=== PATIENT | female | born 1965 | race Caucasian/White ===

== ENCOUNTER 2017-09-23 10:11 | Outpatient (CLI) | payer MEDICAID, MEDICARE ==
--- NOTE | 2017-09-23 10:40 | RAD ---
THREE VIEWS RIGHT SHOULDER: History: Pain. FINDINGS: There are degenerative changes of the AC joint space. Glenohumeral joint space is preserved. No dislo cation. No fracture. Visualized right ribs are unremarkable. IMPRESSION: 1. Degenerative changes of the right AC joint space. 2. No fracture or dislocation. POS: [facility]
== END 2017-09-23 10:12 | disposition home or self-care (01) ==
LOC: RAD-FRANK 10:11
PROVIDERS: ATTEND Internal Medicine
DX: S49.90XA Unspecified injury of shoulder and upper arm, unspecified arm, initial encounter (principal); M19.011 Primary osteoarthritis, right shoulder

== ENCOUNTER 2017-12-04 11:08 | Outpatient (CLI) | payer MEDICARE ==
--- NOTE | 2017-12-04 11:23 | RAD ---
LEFT HIP TWO VIEWS: History: Hip pain. FINDINGS: No signs of fracture, dislocation, or other bony findings. IMPRESSION: Negative left hip. POS: [facility]
--- NOTE | 2017-12-04 11:24 | RAD ---
LUMBAR SPINE SERIES THREE VIEWS: History: Back pain. Comparison: 09-05-06 FINDINGS: Vertebral bodies are normal in height. There is a minimal scoliotic change of the spine, convex to th e left, and there are arthritic changes at the L4-5 level with disc narrowing. No spondylolisthesis i s seen. There is a questionable left unilateral pars defect at this level. CT may be helpful in yenny r assessment of this. IMPRESSION: Development of disc narrowing at L4-5. There is a questionable left unilateral pars defect at this le nhan. CT may be helpful in further evaluation of this finding. POS: [facility]
== END 2017-12-04 11:09 | disposition home or self-care (01) ==
LOC: RAD-FRANK 11:08
PROVIDERS: ATTEND Internal Medicine
DX: M25.552 Pain in left hip (principal); M54.42 Lumbago with sciatica, left side; M48.061 Spinal stenosis, lumbar region without neurogenic claudication
CPT/HCPCS: 72100

== ENCOUNTER 2018-01-01 04:29 | Emergency (ER) | payer MEDICARE, OTHER ==
[2018-01-01 05:03] LABS: #Basophils 0.1 thou/uL (0.0-0.2); #Eosinphils 0.4 thou/uL (0.0-0.7); #Lymphocytes 1.9 thou/uL (1.20-3.40); #Monocytes 0.7 thou/uL (0.11-0.59); #Neutrophils 10.1 thou/uL (1.40-6.50); %Basophils 0.6 % (0.0-1.0); %Lymphocytes 14.4 % (21.0-51.0); %Monocytes 5.2 % (0.0-10.0); %Neutrophils 76.7 % (42.0-75.0); Hemoglobin 12.1 g/dL (12.0-16.0); Mean Corpuscular HGB CONC 34.5 g/dL (32.0-36.0); Mean Corpuscular Hemoglobin 31.3 pg (27.0-31.0); Mean Corpuscular Volume 90.5 fl (81.0-99.0); Mean Platelet Volume 6.1 fL (7.4-10.4); Platelet Count 349 thou/uL (130-400); Red Blood Cell (RBC) Count 3.86 mill/uL (4.20-5.40); White Blood Cell (WBC) Count 13.2 thou/uL (4.8-10.8)
[2018-01-01 05:22] LABS: ALT (SGPT) 12 U/L (8-55); AST (SGOT) 11 U/L (5-34); Albumin 3.9 g/dL (3.5-5.0); Alkaline Phosphatase 123 U/L (40-150); Anion Gap 14 mmol/L (10-20); BUN (Urea Nitrogen) 16 mg/dL (9.8-20.1); Bilirubin, Total 0.5 mg/dL (0.2-1.2); Calc. Creatinine Clearance 0 mL/min (70-130); Calcium 9.2 mg/dL (7.8-10.44); Carbon Dioxide 27 mmol/L (22-29); Chloride 103 mmol/L (98-107); Estimated GFR-MDRD 77; Globulin 2.8 g/dL (2.4-3.5); Glucose 126 mg/dL (70-105); Potassium 3.6 mmol/L (3.5-5.1); Protein, Total 6.7 g/dL (6.0-8.3); Sodium 140 mmol/L (136-145)
[2018-01-01] MEDS ORDERED: Ondansetron HCl/PF 4 MG/2 ML Vial ONE (05:25)
[2018-01-01] MEDS ORDERED: Meclizine HCl 25 MG TAB ONE (05:25)
[2018-01-01 06:22] LABS: Bilirubin Negative (Negative); Blood, Urine Negative (Negative); Clarity CLEAR (Clear); Glucose, Urine (Dipstick) Negative (Negative); Leukocyte Negative (Negative); Nitrite Negative (Negative); Protein, Urine (Dipstick) Negative (Neg-Trace); Urobilinogen 0.2 mg/dL (0.2-1.0); pH, Urine 7.5 (5.0-9.0)
[2018-01-01 06:31] LABS: Specific Gravity, Urine 1.053 (1.002-1.036)
--- NOTE | 2018-01-01 07:51 | CT ---
PRELIMINARY REPORT/[facility]/EMERGENCY AFTER HOURS PROCEDURE: EXAM: CT Head Without Intravenous Contrast CLINICAL HISTORY: 52 years old, female; Signs and symptoms; Dizziness and syncope and collapse; Patient HX: F52 present s to ed for syncope. Pt reports headache, dizziness, and ringing in her ears earlier tonight. Pt repo rts she then went to go to the bathroom, passed out, and fell. Pt reports waking up on the floor. Pt reports noticing that she was pale after waking up. Pt reports headache, vomiting x1, and jaw pain. Pt reports dental surgery on 12/27. Pt reports taking tramadol earlier for lower back pain and reports taking tramadol "every now and then". TECHNIQUE: Axial computed tomography images of the head/brain without intravenous contrast. COMPARISON: No relevant prior studies available. FINDINGS: Brain: Mild volume loss No hemorrhage. Mild white matter disease. No edema. Ventricles: Unremarkable. No ventriculomegaly. Bones/joints: Unremarkable. No acute fracture. Soft tissues: Unremarkable. Sinuses: Unremarkable as visualized. No acute sinusitis. Mastoid air cells: Unremarkable as visualized. No mastoid effusion. IMPRESSION: No intracranial hemorrhage.Please see discussion above. Thank you for allowing us to participate in the care of your patient. Dictated and Authenticated by: Dontae Weldon MD 01/01/2018 5:22 AM Central Time ([place] & [place]) FINAL REPORT NONCONTRAST HEAD CT: History Altered mental status. Syncope. COMPARISON: None. FINDINGS: This report is in agreement with the preliminary report by [facility]. No acute intracranial process. POS: [facility]
--- NOTE | 2018-01-01 07:55 | CT ---
PRELIMINARY REPORT/[facility]/EMERGENCY AFTER HOURS PROCEDURE: EXAM: CT Angiography Head With Intravenous Contrast CLINICAL HISTORY: 52 years old, female; Signs and symptoms; Dizziness and giddiness and headache and syncope and collap se; Patient HX: Er6; No previous on pacs; F52 presents to ed for syncope. Pt reports headache, dizzin ess, and ringing in her ears earlier tonight. Pt reports she then went to go to the bathroom, passed out, and fell. Pt reports waking up on the floor. Pt reports noticing that she was pale after waking up. Pt reports headache, vomiting x1, and jaw pain. Pt reports dental surgery on 12/27. Pt repor ts taking tramadol earlier for lower back pain and reports taking tramadol "every now and then". TECHNIQUE: Axial computed tomographic angiography images of the head with intravenous contrast using CT angiogra phy protocol. All CT scans at this facility use one or more dose reduction techniques, viz.: automate d exposure control; ma/kV adjustment per patient size (including targeted exams where dose is matched to indication; i.e. head); or iterative reconstruction technique. CONTRAST: 100 mL of ISOVUE 370 administered intravenously. COMPARISON: No relevant prior studies available. FINDINGS: Right internal carotid artery: No acute findings. Atherosclerosis noted. Intracranial segment is masters nt with no significant stenosis. No aneurysm. Right anterior cerebral artery: No occlusion or significant stenosis. No aneurysm. Right middle cerebral artery: No occlusion or significant stenosis. No aneurysm. Right posterior cerebral artery: No occlusion or significant stenosis. No aneurysm. Right vertebral artery: Unremarkable as visualized. Left internal carotid artery: No acute findings. Atherosclerosis noted. Intracranial segment is paten t with no significant stenosis. No aneurysm. Left anterior cerebral artery: No occlusion or significant stenosis. No aneurysm. Left middle cerebral artery: No occlusion or significant stenosis. No aneurysm. Left posterior cerebral artery: No occlusion or significant stenosis. No aneurysm. Left vertebral artery: Unremarkable as visualized. Basilar artery: No occlusion or significant stenosis. No aneurysm. IMPRESSION: No hemodynamically significant stenosis EXAM: CT Angiography Neck With Intravenous Contrast CLINICAL HISTORY: 52 years old, female; Signs and symptoms; Dizziness and giddiness and headache and syncope and collap se; Patient HX: Er6; No previous on pacs; F52 presents to ed for syncope. Pt reports headache, dizzin ess, and ringing in her ears earlier tonight. Pt reports she then went to go to the bathroom, passed out, and fell. Pt reports waking up on the floor. Pt reports noticing that she was pale after waking up. Pt reports headache, vomiting x1, and jaw pain. Pt reports dental surgery on 12/27. Pt reports taki ng tramadol earlier for lower back pain and reports taking tramadol "every now and then". TECHNIQUE: Axial computed tomographic angiography images of the neck with intravenous contrast using CT angiogra phy protocol. All CT scans at this facility use one or more dose reduction techniques, viz.: automate d exposure control; ma/kV adjustment per patient size (including targeted exams where dose is matched to indication; i.e. head); or iterative reconstruction technique. CONTRAST: 100 mL of ISOVUE 370 administered intravenously. COMPARISON: CT Brain WO Con 2018-01-01 05:15 FINDINGS: VASCULATURE: Right common carotid artery: No significant stenosis. No dissection or occlusion. Right internal carotid artery: Extracranial segment is patent with no significant stenosis. No dissec tion or occlusion. Right external carotid artery: Unremarkable. No occlusion. Right vertebral artery: No significant stenosis. No dissection or occlusion. Left common carotid artery: No significant stenosis. No dissection or occlusion. Left internal carotid artery: Extracranial segment is patent with no significant stenosis. No dissect ion or occlusion. Left external carotid artery: Unremarkable. No occlusion. Left vertebral artery: No significant stenosis. No dissection or occlusion. NECK: Bones/joints: No acute fracture. No dislocation. Soft tissues: Unremarkable as visualized. No mass. CAROTID STENOSIS REFERENCE USING NASCET CRITERIA: % ICA stenosis = (1 - narrowest ICA diameter/diameter of distal cervical ICA) x 100. Mild - <50% stenosis. Moderate - 50-69% stenosis. Severe - 70-94% stenosis. Near occlusion - 95-99% stenosis. Occluded - 100% stenosis. IMPRESSION: No hemodynamically significant stenosis Thank you for allowing us to participate in the care of your patient. Dictated and Authenticated by: Dontae Weldon MD 01/01/2018 5:48 AM Central Time ([place] & [place]) FINAL REPORT EMERGENCY AFTER HOURS CT ARTERIOGRAM NECK WITH IV CONTRAST AND 3D MIP IMAGING CT ARTERIOGRAM HEAD WITH IV CONTRAST AND 3D MIP IMAGING: Date: 01/01/18 Time: 0521 hours HISTORY: Syncope. Headache. Dizziness. FINDINGS: Findings agree with the preliminary report by [facility]. No significant atherosclerosis or stenosis appare nt. Each carotid system and vertebrobasilar system are widely patent. [place] is intact. No enhancing intracranial masses are apparent. POS: [facility]
== END 2018-01-01 06:50 | disposition home or self-care (01) ==
LOC: ERS 04:29
DX: R55 Syncope and collapse (principal); T40.4X5A Adverse effect of other synthetic narcotics, initial encounter; K50.90 Crohn's disease, unspecified, without complications; F32.9 Major depressive disorder, single episode, unspecified; F17.210 Nicotine dependence, cigarettes, uncomplicated; Z79.899 Other long term (current) drug therapy
CPT/HCPCS: 36415; 70450; 70496; 70498; 80053; 81003; 85025; 93005; 94760; 96361; 96374; J2405

== ENCOUNTER 2018-02-09 12:06 | Outpatient (CLI) | payer MEDICARE, MEDICAID | END 2018-02-09 12:07 | disposition home or self-care (01) | LOC: BICMAMMO 12:06 | PROVIDERS: ATTEND Family Medicine | DX: Z12.31 Encounter for screening mammogram for malignant neoplasm of breast (principal) | CPT/HCPCS: 77063; 77067 ==

== ENCOUNTER 2019-01-06 17:10 | Observation (INO) | payer MEDICAID, MEDICARE, OTHER ==
[2019-01-06] MEDS ORDERED: Ondansetron PF 4 MG/2 ML Vial ONE (18:29)
[2019-01-06] MEDS ORDERED: Morphine 4 MG/ML VIAL ONE (18:29)
[2019-01-06 18:36] LABS: #Basophils 0.1 thou/uL (0.0-0.2); #Eosinphils 0.4 thou/uL (0.0-0.7); #Lymphocytes 1.8 thou/uL (1.20-3.40); #Monocytes 0.6 thou/uL (0.11-0.59); #Neutrophils 11.7 thou/uL (1.40-6.50); %Basophils 0.8 % (0.0-1.0); %Eosinophils 2.8 % (0.0-10.0); %Lymphocytes 12.4 % (21.0-51.0); %Monocytes 4.3 % (0.0-10.0); %Neutrophils 79.8 % (42.0-75.0); Hemoglobin 14.2 g/dL (12.0-16.0); Mean Corpuscular HGB CONC 34.8 g/dL (32.0-36.0); Mean Corpuscular Hemoglobin 32.2 pg (27.0-31.0); Mean Corpuscular Volume 92.7 fL (78.0-98.0); Mean Platelet Volume 6.8 fL (7.4-10.4); Platelet Count 413 thou/uL (130-400); RBC Distribution Width 11.6 % (11.5-14.5); Red Blood Cell (RBC) Count 4.41 mill/uL (4.20-5.40); White Blood Cell (WBC) Count 14.7 thou/uL (4.8-10.8)
[2019-01-06 18:49] LABS: ALT (SGPT) 22 U/L (8-55); AST (SGOT) 19 U/L (5-34); Albumin 4.4 g/dL (3.5-5.0); Alkaline Phosphatase 152 U/L (40-150); Anion Gap 16 mmol/L (10-20); BUN (Urea Nitrogen) 18 mg/dL (9.8-20.1); Bilirubin, Total 0.3 mg/dL (0.2-1.2); Calc. Creatinine Clearance 0 mL/min (70-130); Carbon Dioxide 22 mmol/L (22-29); Chloride 104 mmol/L (98-107); Estimated GFR-MDRD 76; Glucose 125 mg/dL (70-105); Potassium 3.4 mmol/L (3.5-5.1); Protein, Total 7.4 g/dL (6.0-8.3); Sodium 139 mmol/L (136-145)
[2019-01-06] MEDS ORDERED: traMADol HCl 50 MG TAB PO PRN ×2 (18:52)
[2019-01-06] MEDS ORDERED: TETANUS AND DIPHTHERIA TOX/PF 0.5 ML DISP.SYRIN IM SCH (19:00)
[2019-01-06] MEDS ORDERED: Communication Order-Pharmacy FS SCH (19:00)
--- NOTE | 2019-01-06 19:01 | HP ---
PRINCIPAL DIAGNOSIS: Left trimalleolar ankle fracture. BRIEF HISTORY OF PRESENT ILLNESS: Cecilia is a pleasant 53-year-old lady, who reports that earlier this afternoon she had a slip and fall sustaining twisting injury to her left ankle. She reports immediate deformity and inability to stand. Upon arrival at [facility], she was found to have deformity of the left ankle with bruising medially and obvious deformity at the ankle. The patient last ate at 2 o'clock this afternoon. She reports a pain level of 6/10. PAST MEDICAL HISTORY: Remarkable for hypertension, Crohn disease, and MS. PAST SURGICAL HISTORY: Includes right total knee arthroplasty, hysterectomy, lumbar diskectomy, and cholecystectomy. MEDICATIONS: Include, 1. Hydrochlorothiazide. 2. A statin. ALLERGIES: TO PENICILLIN. THIS WAS A CHILD. SHE DOES NOT RECALL WHAT REACTION SHE HAD. SOCIAL HISTORY: She denies alcohol use. Denies drug use. She is a smoker. She lives in a private residence with family. FAMILY HISTORY: Noncontributory for this injury. REVIEW OF SYSTEMS: Denies recent fevers, chills, or sweats. Denies chest pain or shortness of breath. Denies numbness or tingling in the lower extremity. PHYSICAL EXAMINATION: VITAL SIGNS: Temperature 98, heart rate of 82, respiratory rate of 18, and blood pressure of 141/82. HEENT: Atraumatic and normocephalic. HEART: Shows regular rate and rhythm without murmur. Chest wall is nontender. LUNGS: Clear to auscultation bilaterally with good breath sounds. ABDOMEN: Round and nontender with normal bowel sounds. PELVIS: Stable. EXTREMITIES: Remarkable findings of extremities are that of a left lower extremity with obvious deformity at the ankle with obvious palpable lateral shift of the talus from within the mortise and crepitation at the lateral malleolus. Her foot compartments are soft. Lower leg compartments also soft and nontender. Distal neurovascular exam remarkable for intact subjective sensation. She is able to wiggle her toes, which has some mild to moderate pain at the ankle. DIAGNOSTIC DATA: Three-view x-ray, left ankle remarkable for a lateral malleolus and posterior malleolar fracture with lateral shift of the talus within the mortise. She was found to have avulsion injury at the tip of the medial malleolus as well. LABORATORY DATA: Pending. PLAN: At this time, the patient will be brought into the hospital. She will be placed n.p.o. after midnight with anticipated plans for open reduction and internal fixation tomorrow afternoon. Today, I discussed with the patient risks and benefits of surgery. Risks include, but are not limited to bleeding, infection, nerve injury, DVT, PE, ankle arthritis, malunion, nonunion, loss of limb or life. She appears to understand and does wish to proceed. Job ID: [id number]
--- NOTE | 2019-01-06 19:49 | RAD ---
LEFT ANKLE THREE VIEWS: 01/06/19 HISTORY: Leg injury status post fall. Obliquely oriented distal fibular fracture. Disruption of the deltoid ligament. There is some small b donnell avulsions noted. The tibia is displaced medially. There is an associated posterior malleolar frac ture. IMPRESSION: Trimalleolar fracture. POS: [facility]
--- NOTE | 2019-01-06 21:14 | RAD ---
THREE VIEWS RIGHT ANKLE 01/06/19 HISTORY: Left leg injury post fall. Mechanical fall. COMPARISON: 01/06/19 at 1724 hours. FINDINGS: Fracture involving the distal fibula is again seen with alignment of fracture fragments similar to th e prior study. There has been interval reduction of the previously noted dislocation of the tibiotala r joint although there is mild persistent widening between the medial malleolus and the talus. [place] ing splint material is now present. Tiny osseous densities are seen inferior to the medial malleolus likely related to tiny avulsion fracture fragments. Subcutaneous edema is again seen about the ankle. overlying splint material is now present. IMPRESSION: 1. Improvement in alignment of the dislocation of the tibiotalar joint as described above with s table alignment of fracture involving the distal fibula with tiny fracture fragments inferior to the medial malleolus. 2. Soft tissue swelling. POS: [facility]
[2019-01-06] MEDS: Sodium Chloride 0.9% 75 ML IV SCH ×5 (21:31→22:26)
[2019-01-06] MEDS: Morphine 4 MG/ML VIAL SLOW IVP PRN (22:32)
[2019-01-07] MEDS: Sodium Chloride 0.9% 75 ML IV SCH ×2 (00:54→01:25)
[2019-01-07] MEDS: Morphine 4 MG/ML VIAL SLOW IVP PRN ×3 (01:16→11:47)
[2019-01-07] MEDS: Ondansetron PF 4 MG/2 ML Vial IV PRN ×2 (01:23→08:11)
[2019-01-07] MEDS: Sodium Chloride 0.9% 1,000 ML IV SCH ×3 (01:25→21:13)
[2019-01-07 02:02] VITALS: BMI 31.8
[2019-01-07] MEDS ORDERED: Bupivacaine HCl 0.5%/Epinephrine 1:200,000/PF 30 ml Vial ONE (12:17)
[2019-01-07] MEDS ORDERED: Ropivacaine 0.5% HCl/PF (150 MG/30 ML VIAL) ONE (12:17)
[2019-01-07] MEDS ORDERED: Ropivacaine 0.2% HCl/PF (40 MG/20 ML VIAL) ONE (12:17)
[2019-01-07] MEDS ORDERED: Ondansetron PF 4 MG/2 ML Vial ONE (12:54)
[2019-01-07] MEDS ORDERED: Lidocaine 1% PF 5 ML VIAL ONE (12:54)
[2019-01-07] MEDS ORDERED: PHENYLEPHRINE-NS 100 MCG/ML 10 ML SYRINGE ONE (12:54)
[2019-01-07] MEDS ORDERED: PROPOFOL 200 MG/20 ML VIAL ONE (12:54)
[2019-01-07] MEDS ORDERED: Clindamycin/D5W 900 mg/50 ml Premix Bag ONE (13:58)
[2019-01-07] MEDS ORDERED: Ropivacaine 0.2% 550 ML 550 ML NERVE BLCK SCH (14:41)
[2019-01-07] MEDS ORDERED: Ondansetron PF 4 MG/2 ML Vial IVP PRN (14:41)
[2019-01-07] MEDS ORDERED: HYDROcodone/Acetaminophen 10/325 mg Tablet PO PRN ×2 (14:41)
[2019-01-07] MEDS ORDERED: Promethazine HCl 25 MG/ML VIAL IM PRN (14:41)
[2019-01-07] MEDS ORDERED: Zolpidem Tartrate 5 MG TAB PO PRN (14:41)
[2019-01-07] MEDS ORDERED: traMADol HCl 50 MG TAB PO PRN ×2 (14:41)
[2019-01-07] MEDS ORDERED: Fentanyl 100 MCG/2 ML VIAL IV PRN (14:42)
[2019-01-07] MEDS ORDERED: Midazolam HCl 2 mg/2 ml Vial ONE (14:47)
[2019-01-07] MEDS ORDERED: Fentanyl 100 MCG/2 ML VIAL ONE (14:47)
--- NOTE | 2019-01-07 15:46 | RAD ---
LEFT ANKLE 3 VIEWS: Date: 01/07/19 HISTORY: Distal fibular fracture. FINDINGS/IMPRESSION: Three spot fluoroscopic intraoperative images of the left ankle demonstrate interval reduction and in ternal fixation of the distal fibular fracture with plate and screws. Anatomic alignment has been res tored. POS: [facility]
[2019-01-07] MEDS: Ketorolac Tromethamine 30 MG/ML VIAL IVP SCH ×2 (17:58→23:23)
--- NOTE | 2019-01-07 19:28 | OP ---
DATE OF PROCEDURE: 01/07/2019 PREOPERATIVE DIAGNOSES: Left lateral and posterior malleoli fractures with small avulsion from left medial malleolus. POSTOPERATIVE DIAGNOSES: Left lateral and posterior malleoli fractures with small avulsion from left medial malleolus. PROCEDURE PERFORMED: Open reduction and internal fixation of left lateral malleolus. ANESTHESIA: General. CAMP PROGRAM DIRECTOR: Vel Smith PA-C. TOURNIQUET TIME: 32 minutes at 300 mmHg. IMPLANT: Synthes 8-hole 1/3 tubular plate. COMPLICATIONS: None. DRAINS: None. SPECIMEN: None. OUTCOME: Near-anatomic alignment with stable mortise. INDICATIONS: Ms. Adame is a 53-year-old lady who is status post slip and fall sustaining twisting injury to her left ankle on 01/06/2019. The patient was seen and evaluated in the emergency room where x-rays demonstrated a lateral malleolus fracture with displacement as well as lateral shift of the talus. She was found to have a lateral malleolus fracture as well as a posterior malleolar fracture with the less than 25% articular surface involved as well as a small avulsion injury from the medial side of the ankle. After discussion with the patient including risks and benefits, we decided to proceed with open reduction and internal fixation and possible stabilization of the mortise if necessary. Informed consent has been obtained. I believe all questions answered. DESCRIPTION OF PROCEDURE: The patient was brought to the operating room and a time-out performed followed by induction of general anesthesia. Next, sterile prep and drape was performed of the left lower extremity. The limb was then exsanguinated with Esmarch bandage, tourniquet inflated to 300 mmHg. A vertical incision was made following the distal fibula. After skin was sharply incised, dissection was carried down bluntly exposing the fracture and the lateral cortex of the distal fibula. The fracture was then reduced and held in place with a bone tenaculum. Next, an 8-hole 1/3 tubular plate was applied to the lateral cortex of the distal fibula, contouring it to fit the contour of the distal fibula. This was held in place with 3.5 mm cortical screw proximal to the fracture and then a total of three 4.0 mm fully-threaded cancellous screws distal to the fracture. Additional 3.5 mm screws then applied proximally as well. At the completion of this, AP, lateral, and mortise images were obtained that showed anatomic reduction of the mortise with no lateral shift of the talus. The lateral malleolus was grabbed with a bone tenaculum. An attempt at distraction of the mortise was performed, however, no widening was achieved. The posterior malleolus also essentially reduced with anatomic reduction of the lateral malleolus. As such, it was opted not to proceed with it further placement of hardware. The lateral wound was thoroughly irrigated with bulb syringe and then closed in layers with 0 Vicryl deep, 2-0 Vicryl subcutaneously, and sergio for the skin. Xeroform gauze, Webril, and fiberglass splint was applied to the ankle. The tourniquet was let down at the completion of dressing and patient was transferred to recovery room in stable condition. There were no complications. The patient tolerated the procedure well. Job ID: [id number]
[2019-01-07] MEDS: Aspirin 81 mg Enteric Coated Tablet PO SCH (21:13)
[2019-01-08] MEDS: Ketorolac Tromethamine 30 MG/ML VIAL IVP SCH (06:11)
[2019-01-08] MEDS: Sodium Chloride 0.9% 1,000 ML IV SCH (07:32)
[2019-01-08 08:03] VITALS: BP 112/69; TEMP 98.5
[2019-01-08] MEDS: Aspirin 81 mg Enteric Coated Tablet PO SCH (08:04)
--- NOTE | 2019-01-11 08:38 | DIS ---
DATE OF ADMISSION: 01/06/2019 DATE OF DISCHARGE: 01/08/2019 PREOPERATIVE DIAGNOSIS: Left lateral and posterior malleolar fractures with small avulsion of the left medial malleolus. POSTOPERATIVE DIAGNOSIS: Left lateral and posterior malleolar fractures with small avulsion of the left medial malleolus. PROCEDURE PERFORMED: The patient underwent open reduction and internal fixation of the left lateral malleolus. HOSPITAL COURSE: Hospital stay unremarkable. The patient worked with physical therapy to increase her mobility and she did okay and had no hospital complications. DISCHARGE CONDITION: Stable. DISPOSITION: Home. FOLLOWUP: Would be in 10 to 14 days or sooner if there are problems and/or concerns. DISCHARGE MEDICATIONS: Given with usage instructions. Job ID: [id number]
== END 2019-01-08 10:14 | disposition home or self-care (01) ==
LOC: ERS 17:10 → SURG B 19:58
PROVIDERS: ADMIT Orthopaedic Surgery; ATTEND Orthopaedic Surgery
PROC: 0QSK04Z Reposition Left Fibula with Internal Fixation Device, Open Approach (ICD-10-PCS; principal; 2019-01-07)
DX: S82.852A Displaced trimalleolar fracture of left lower leg, initial encounter for closed fracture (principal); I10 Essential (primary) hypertension; G35 Multiple sclerosis; K50.90 Crohn's disease, unspecified, without complications; F17.210 Nicotine dependence, cigarettes, uncomplicated; Z79.899 Other long term (current) drug therapy; Z96.651 Presence of right artificial knee joint; Z98.890 Other specified postprocedural states; Z88.0 Allergy status to penicillin; X50.1XXA Overexertion from prolonged static or awkward postures, initial encounter; W01.0XXA Fall on same level from slipping, tripping and stumbling without subsequent striking against object, initial encounter
CPT/HCPCS: 27792; 27840; 73610 ×2; 76000; 80053; 85025; 86850; 86870; 86900; 86901; 86902; 86905; 86920; 86922; 96361 ×2; 96372; 96374; 96375 ×2; 96376 ×3; 97116; 97139 ×3; 99284; A4306; C1713 ×3; G0378 ×2; J0670; J1885; J2001; J2250; J2270; J2405; J2550; J2704; J2795; J3010; J3490

== ENCOUNTER 2020-01-22 14:21 | Inpatient (IN) | payer MEDICARE, OTHER ==
[~2020-01-22 14:21] MED LIST: Iopamidol 370 76% 100 ML VIAL ONE
--- NOTE | 2020-01-22 14:34 | CT ---
CT HEAD WITHOUT IV CONTRAST COMPARISON: 01/01/2018 HISTORY: Level 1 stroke alert. Left lower facial droop. Right-sided neck pain. TECHNIQUE: Axial CT imaging at 5 mm intervals from vertex through skull base without contrast FINDINGS: There is stable low density area seen within the right anterior frontal forceps region in the subcort ical white matter which is nonspecific but likely reflective of mild chronic small vessel ischemic changes given stability over this period of time. There is no evidence of an acute infarction, hemorr junito, mass effect, or midline shift. The ventricular system is normal in size, shape, and position. Visualized paranasal sinuses are clear. Osseous structures appear intact. IMPRESSION: 1. No acute intracranial abnormality demonstrated. 2. Above findings discussed with Dr. Rodriguez in the emergency department on 01/22/2020 at 1430 hours.
[2020-01-22 14:50] LABS: #Basophils 0.1 thou/uL (0.0-0.2); #Eosinphils 0.5 thou/uL (0.0-0.7); #Lymphocytes 2.4 thou/uL (1.20-3.40); #Monocytes 0.6 thou/uL (0.11-0.59); #Neutrophils 6.7 thou/uL (1.40-6.50); %Basophils 0.8 % (0.0-1.0); %Eosinophils 5.1 % (0.0-10.0); %Lymphocytes 23.1 % (21.0-51.0); %Monocytes 5.7 % (0.0-10.0); %Neutrophils 65.3 % (42.0-75.0); Hemoglobin 13.9 g/dL (12.0-16.0); Mean Corpuscular HGB CONC 34.1 g/dL (32.0-36.0); Mean Corpuscular Hemoglobin 31.4 pg (27.0-31.0); Mean Corpuscular Volume 92.1 fL (78.0-98.0); Mean Platelet Volume 7.4 fL (7.4-10.4); Platelet Count 329 thou/uL (130-400); Red Blood Cell (RBC) Count 4.41 mill/uL (4.20-5.40); White Blood Cell (WBC) Count 10.3 thou/uL (4.8-10.8)
[2020-01-22 15:03] LABS: PTT 28.3 SEC (22.9-36.1)
--- NOTE | 2020-01-22 15:05 | CT ---
EXAM: CT angiogram head and neck with IV contrast and 3-D reconstructions PROVIDED CLINICAL HISTORY: Left lower facial droop and right-sided neck pain for 3 days COMPARISON: 01/01/2018 FINDINGS: There is a normal arrangement of the great vessels at the aortic arch which are patent. Portion of th e left subclavian artery is not well visualized due to dense contrast in adjacent veins, but the subclavian arteries are otherwise patent bilaterally. The innominate artery as well as bilateral comm on carotid arteries are patent. The bilateral internal and extracranial external carotid arteries are patent. The right vertebral artery is again dominant and patent. The left vertebral artery is small in calibe r and terminates in PICA. The basilar artery and bilateral posterior cerebral arteries are patent The bilateral middle cerebral and anterior cerebral arteries are patent. No focal stenosis or branch occlusion is appreciated. Vascular calcifications are seen in the carotid siphons. Volume loss is seen in the anterior aspect of the right upper lobe with mild dependent atelectasis bi laterally. There is been no interval change when compared to the prior exam. IMPRESSION: 1. Patent bilateral internal carotid arteries. 2. Patent right vertebral artery. The left vertebral artery is small in caliber and terminates in PIC A but is patent. 3. No focal stenosis or branch occlusion is seen involving the [place] or vertebrobasilar sy stem. 4. No definite intracranial aneurysm is seen within the limitations of the technique of this exam.
[2020-01-22 15:14] LABS: ALT (SGPT) 42 U/L (8-55); AST (SGOT) 28 U/L (5-34); Albumin 4.4 g/dL (3.5-5.0); Alkaline Phosphatase 118 U/L (40-110); Anion Gap 18 mmol/L (10-20); BUN (Urea Nitrogen) 14 mg/dL (9.8-20.1); Bilirubin, Total 0.8 mg/dL (0.2-1.2); CK (CPK) 90 U/L (29-168); Calc. Creatinine Clearance 0 mL/min (70-130); Calcium 10.4 mg/dL (7.8-10.44); Carbon Dioxide 22 mmol/L (22-29); Chloride 102 mmol/L (98-107); Estimated GFR-MDRD 74; Globulin 2.5 g/dL (2.4-3.5); Glucose 102 mg/dL (70-105); Potassium 3.9 mmol/L (3.5-5.1); Protein, Total 6.9 g/dL (6.0-8.3); Sodium 138 mmol/L (136-145)
[2020-01-22] MEDS ORDERED: Aspirin 325 MG TAB ONE (16:05)
[2020-01-22 16:25] LABS: Hemoglobin A1c 5.6 % (4.0-6.0)
--- NOTE | 2020-01-22 16:32 | PDOC.HHP ---
Hospitalist HPI - History of Present Illness Right face numbness History of Present Illness: 54 years old female with past medical history of hypertension, MS, and Crhons disease who was transferred to the hospital for a suspected CVA. The patient presented with Right sided ptosis, facial droop, and numbness. CT head and CTA of the head and neck did not reveal any abnormalities. The patient refused TPA. She will be admitted for further evaluation. 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) Renal/: reports: Other (Crohn) - Past Surgical History Past Surgical History: reports: Cholecystectomy, Hysterectomy - Family History Family History: reports: no pertinent history - Social History Smoking Status: Never smoker Alcohol: reports: None Drugs: reports: none - Exam General Appearance: awake alert Eye: PERRL ENT: normocephalic atraumatic Neck: supple, no JVD Heart: RRR, no murmur, no gallops, no rubs Respiratory: CTAB, no wheezes, no rales, no ronchi Gastrointestinal: soft, non-tender, non-distended, normal bowel sounds Neurological: no weakness Neurological - other findings: Rt facial droop and ptosis Hospitalist Results - Labs Result Diagrams: 01/22/20 14:32 01/22/20 14:32 Lab results: WBC 10.3 thou/uL (4.8-10.8) 01/22/20 14:32 Hgb 13.9 g/dL (12.0-16.0) 01/22/20 14:32 Hct 40.6 % (36.0-47.0) 01/22/20 14:32 MCV 92.1 fL (78.0-98.0) 01/22/20 14:32 Plt Count 329 thou/uL (130-400) 01/22/20 14:32 Neutrophils % 65.3 % (42.0-75.0) 01/22/20 14:32 Sodium 138 mmol/L (136-145) 01/22/20 14:32 Potassium 3.9 mmol/L (3.5-5.1) 01/22/20 14:32 Chloride 102 mmol/L (98-107) 01/22/20 14:32 Carbon Dioxide 22 mmol/L (22-29) 01/22/20 14:32 BUN 14 mg/dL (9.8-20.1) 01/22/20 14:32 Creatinine 0.80 mg/dL (0.6-1.1) 01/22/20 14:32 Glucose 102 mg/dL (70-105) 01/22/20 14:32 Calcium 10.4 mg/dL (7.8-10.44) 01/22/20 14:32 Total Bilirubin 0.8 mg/dL (0.2-1.2) 01/22/20 14:32 AST 28 U/L (5-34) 01/22/20 14:32 ALT 42 U/L (8-55) 01/22/20 14:32 Alkaline Phosphatase 118 U/L (40-110) H 01/22/20 14:32 Creatine Kinase 90 U/L (29-168) 01/22/20 14:32 Troponin I Less than 0.010 ng/mL (< 0.028) 01/22/20 14:32 Serum Total Protein 6.9 g/dL (6.0-8.3) 01/22/20 14:32 Albumin 4.4 g/dL (3.5-5.0) 01/22/20 14:32 Hospitalist H&P A/P - Problem (1) Facial droop Code(s): R29.810 - FACIAL WEAKNESS Status: Acute (2) HTN (hypertension) Code(s): I10 - ESSENTIAL (PRIMARY) HYPERTENSION Status: Acute (3) Crohn disease Code(s): K50.90 - CROHN'S DISEASE, UNSPECIFIED, WITHOUT COMPLICATIONS Status: Acute - Plan Plan: [place] palsy vs CVA VS MS flare. Placed in neuro telemetry. Neurochecks every 4 hours. High-dose aspirin and atorvastatin. Liberate blood pressure with a goal of systolic blood pressure less than 220 and diastolic blood pressure less than 110. Keep blood sugar level less than 180. Check lipid profile Check hemoglobin A1c Check echocardiogram Check MRI of the brain PT/OT/ST
[2020-01-22 17:05] LABS: Bilirubin Negative (Negative); Blood, Urine Negative (Negative); Clarity Clear (Clear); Glucose, Urine (Dipstick) Normal (Negative); Leukocyte Negative Leu/uL (Negative); Nitrite Negative (Negative); Protein, Urine (Dipstick) Negative (Neg-Trace); Urobilinogen Normal mg/dL (Less than 2)
[2020-01-22 18:40] VITALS: BMI 32.1
[2020-01-22] MEDS ORDERED: Acetaminophen 650 MG Suppository PR PRN (20:07)
[2020-01-22] MEDS: Morphine 2 MG/ML SYRINGE SLOW IVP PRN (21:52)
[2020-01-22] MEDS: Atorvastatin Calcium 40 MG TAB PO SCH (21:53)
[2020-01-23] MEDS: Morphine 2 MG/ML SYRINGE SLOW IVP PRN (06:12)
[2020-01-23] MEDS: Enoxaparin Sodium 40 MG/0.4 ML SYRINGE SC SCH (08:46)
[2020-01-23] MEDS: Aspirin 325 mg Enteric Coated Tablet PO SCH (08:46)
--- NOTE | 2020-01-23 09:51 | PDOC.HOSPP ---
- Subjective Encounter Date: 01/23/20 Subjective: Rt sided inability to close the eye and facial droop. - Objective Vital Signs & Weight: Vital Signs (12 hours) Temp Pulse Resp BP Pulse Ox 01/23/20 07:47 97.6 F 79 16 124/79 95 01/23/20 04:00 97.7 F 77 16 120/70 96 01/23/20 00:00 98.1 F 71 16 132/75 95 Weight Weight 181 lb Result Diagrams: 01/22/20 14:32 01/22/20 14:32 Additional Labs: Accuchecks 01/22/20 01/22/20 21:27 14:28 POC Glucose 110 102 Hospitalist ROS - Review of Systems Constitutional: denies: fever, chills ENT: reports: ear pain (Rt) - Medication Medications: Active Medications Generic Name Dose Route Start Last Admin Trade Name Freq PRN Reason Stop Dose Admin Aspirin 325 mg 01/23/20 09:00 01/23/20 08:46 Ecotrin PO 325 mg DAILY TOMMY Administration Atorvastatin Calcium 80 mg 01/22/20 21:00 01/22/20 21:53 Lipitor PO Not Given HS TOMMY Enoxaparin Sodium 40 mg 01/23/20 09:00 01/23/20 08:46 Lovenox SC 40 mg 0900 TMOMY Administration Morphine Sulfate 2 mg 01/22/20 20:07 01/23/20 06:12 Morphine SLOW IVP 2 mg Q4H PRN Administration Moderate Pain (4-6) Sodium Chloride 10 ml 01/22/20 16:02 01/22/20 21:54 Flush - Normal Saline IVF 10 ml PRN PRN Administration Saline Flush - Exam General Appearance: awake alert Eye: PERRL ENT: normocephalic atraumatic Neck: supple, no JVD Heart: RRR, no murmur, no gallops, no rubs Respiratory: CTAB Gastrointestinal: soft, non-tender, non-distended Neurological - other findings: Right sided lower motor neuron style facial palsy Hosp A/P (1) Facial droop Code(s): R29.810 - FACIAL WEAKNESS Status: Acute (2) HTN (hypertension) Code(s): I10 - ESSENTIAL (PRIMARY) HYPERTENSION Status: Acute (3) Crohn disease Code(s): K50.90 - CROHN'S DISEASE, UNSPECIFIED, WITHOUT COMPLICATIONS Status: Acute - Plan 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 Start artificial tears and prednisone 60 mg po daily for one week. MRI machine not working today. Hopefully the test can be done tomorrow and the patient can be discharged.
[2020-01-23] MEDS ORDERED: Lidocaine 2% 20 ml MDV SC SCH (10:00)
[2020-01-23] MEDS ORDERED: Lidocaine 5% Patch TD SCH (10:45)
[2020-01-23] MEDS ORDERED: Scopolamine 1.5 mg/72 hour Patch TD SCH (11:00)
[2020-01-23] MEDS ORDERED: predniSONE 20 MG TAB PO SCH (12:00)
[2020-01-23] MEDS: Artificial Tear Sol 15 ML BOT R EYE SCH ×4 (12:52→22:10)
--- NOTE | 2020-01-23 17:26 | CON ---
DATE OF TELEMEDICINE CONSULTATION: 01/23/2020 CHIEF COMPLAINT: Right facial droop. HISTORY OF PRESENT ILLNESS: The patient is a 54-year-old right-handed lady, who was in her usual state of health until about 3 days ago when she developed pain in her neck which traveled to under her ear on the right side and she suddenly developed right facial droop. Her tongue felt thick and she cannot close her eyes and she had no associated numbness, weakness, or dizziness or any other neurological symptoms suggest following difficulty. PREVIOUS MEDICAL HISTORY: She was told that she had multiple sclerosis in 2008 , at which time, she was having gait problems and also had a thorough evaluation by neurologist in [place]. She reports she had white matter lesions in front of the brain and she was told that she had enhancement of those lesions and was given treatment for demyelination at that time and subsequently she never had any other symptoms and she does have history of Crohn disease. PAST SURGICAL HISTORY: Cholecystectomy, hysterectomy, and other pertinent previous medical history includes hypertension. FAMILY HISTORY: The patient's parents had CVA. She has 2 brothers who are healthy. She does not have any children. SOCIAL HISTORY: She is nonsmoker. No alcohol. No drugs. She is on disability for Crohn disease. REVIEW OF SYSTEMS: PULMONARY: Negative for shortness of breath. CARDIAC: Negative for chest pain or palpitations. GI: Negative for any stomach issues, but positive for Crohn disease. HEMATOLOGIC: Negative for any bleeding diathesis. OPHTHALMOLOGIC: Negative for any eye problems. DERMATOLOGIC: Negative for skin lesions. LABORATORY REPORTS: White count 10.3, hemoglobin 13.9, hematocrit 40.6, platelet count 329. PT 13, INR 1.0, PTT 28.3. Chemistry; sodium 138, potassium 3.9, chloride 102, bicarb 22, anion gap 18, BUN 14, creatinine 0.8, glucose 102. AST 28, ALT 42, alkaline phosphatase 118, CPK 90, triglycerides 178, cholesterol 186, LDL 113, HDL 37, heart disease risk ratio 5.0, and she is pending MRI. She did have a CT angiogram of the [place] of [place], which showed patent bilateral ICAs, patent right vertebral artery, left vertebral artery small in caliber and terminates in pica but is patent. No focal stenosis or branch occlusion is seen in the [place]. No definite intracranial aneurysm is seen. PHYSICAL EXAMINATION: VITAL SIGNS: Temperature 97.6, pulse 79, respiratory rate 16, O2 saturations 95 , blood pressure 141/83. GENERAL APPEARANCE: Well-built, well-nourished lady. CHEST: Clear vesicular breathing. CARDIOVASCULAR: S1, S2 heard. No murmurs. ABDOMEN: Soft, nontender. No organomegaly noted. NEUROLOGIC: Higher intellectual functions; normal orientation to time, place, and person. Appropriate conversation. Cranial nerves 2 through 12 normal extraocular movements. Decreased sensation of face on the right side. Right facial droop mostly lower motor neuron type facial paralysis. Tongue midline. No atrophy noted. Normal elevation of palate. Normal hearing bilaterally. Pupils 2 mm bilaterally. Motor bulk, normal tone. Normal strength 5/5 in upper and lower extremities in iliopsoas, hamstrings, quadriceps, ankle dorsiflexion, plantar flexion, deltoid, biceps, triceps, wrist extension and flexion, finger extension and flexion bilaterally. Deep tendon reflexes 2+ throughout in upper and lower extremities. Sensory examination normal to touch bilaterally in upper and lower extremities. Cerebellar, [id number] and [id number] is normal. IMPRESSION AND PLAN: The patient is a 54-year-old lady with history of possible demyelination in the past without any Neurology followup and the patient at this time comes in with right facial droop with the sudden onset associated with pain behind her right ear. She also has mild facial numbness on the right side on examination. 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 However, given her history of demyelination, I would suggest MRI with and without contrast to make sure that there are no enhancing lesions in the [employer] prior to discharging this patient. Please consider adding steroids and acyclovir for Salas palsy. Call me if you have any further questions. Job ID: [id number] [facility]
[2020-01-23] MEDS: Atorvastatin Calcium 40 MG TAB PO SCH (20:29)
[2020-01-23] MEDS ORDERED: Lidocaine Patch Removal 1 EACH TOP SCH (21:00)
[2020-01-24] MEDS ORDERED: predniSONE 20 MG TAB PO SCH (08:00)
[2020-01-24] MEDS ORDERED: Ibuprofen 800 MG TAB PO PRN (08:09)
[2020-01-24] MEDS: Aspirin 325 mg Enteric Coated Tablet PO SCH (08:26)
[2020-01-24] MEDS: Enoxaparin Sodium 40 MG/0.4 ML SYRINGE SC SCH (08:27)
[2020-01-24] MEDS: Artificial Tear Sol 15 ML BOT R EYE SCH ×2 (08:27→15:54)
[2020-01-24] MEDS ORDERED: Lidocaine 5% Patch TD SCH (09:00)
[2020-01-24 11:25] VITALS: BP 133/70; TEMP 98.6
--- NOTE | 2020-01-24 13:40 | MRI ---
MRI BRAIN WITH AND WITHOUT IV CONTRAST: HISTORY: Left facial droop. Level 1 stroke. Concern for demyelination COMPARISON: 09/28/2012 CORRELATION: CT and CTA brain dated 01/22/2020 FINDINGS: No restricted diffusion is seen. No evidence of infarct, hemorrhage, mass, midline shift or abnormal extra-axial fluid collections is noted. No abnormal postcontrast enhancement is seen. The ventricular size is appropriate and the basilar cisterns are patent. There are multiple foci of T2 prolongation in the periventricular and subcortical white matter which remains stable; though could represent multiple sclerosis, the location and characteristics are not classic for multiple sclerosis. These findings may represent chronic small vessel ischemic disease. IMPRESSION: No evidence of acute intracranial process, mass or active demyelination..
--- NOTE | 2020-01-24 14:55 | MRI ---
MRI THORACIC SPINE WITH AND WITHOUT CONTRAST: Date: 01/24/2020 INDICATION: Demyelination. FINDINGS: The thoracic vertebra maintain normal height and alignment. There are mild degenerative changes in th e thoracic spine with mild anterior osteophytes and mild degenerative disc changes. There is no significant disc bulge or disc protrusion at any of the visualized thoracic levels. No ce ntral canal stenosis. The thoracic cord signal is normal. There is no evidence of demyelinating process. No abnormal enhanc ement identified. IMPRESSION: Unremarkable MRI of thoracic spine. POS: [facility]
--- NOTE | 2020-01-24 19:17 | DIS ---
DATE OF ADMISSION: 01/22/2020 DATE OF DISCHARGE: 01/24/2020 REASON FOR HOSPITALIZATION: Facial asymmetry. 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 PROCEDURES PERFORMED AND TREATMENTS RENDERED: The patient was admitted to the medical unit with telemetry, stroke unit for maximum medical therapy. The patient was seen and evaluated by Neurology, please see full consultation notes and progress notes for details. Neurology recommending that the patient likely suffering from Salas's palsy, and recommended starting medical therapy, which was done appropriately. The patient had all appropriate neurologic imaging to rule out acute CVA, please see full radiographic imaging reports for details. The patient had an MRI of the brain, please see full report for details, there is no acute CVA identified. The patient's otherwise workup was benign including echocardiogram with a preserved ejection fraction of 55% to 60% and mild diastolic dysfunction. There are also mild mitral regurgitation and mild tricuspid regurgitation present on echocardiogram - please see full echocardiogram report for details. The patient having CT angiography of the head and neck, please see full report for details, there is no hemodynamically significant stenosis in bilateral internal carotid arteries. The patient had a metabolic workup, please see full laboratory data for details, she had no significant abnormalities on her laboratory data. The patient with urinalysis that was negative for urinary tract infection. The patient was recommended safe for discharge by Neurology with close followup in the outpatient setting. CONDITION ON DISCHARGE: Stable. SPECIFIC INSTRUCTIONS FOR THE PATIENT/FAMILY: 1. The patient recommended to complete a full course of oral medications for resolution of Salas's palsy. 2. The patient recommend to follow up with primary care physician in the next 5 to 7 days. 3. The patient recommended to follow up with Neurology, Dr. Us in the outpatient setting in the next 1 to 2 weeks. 4. The patient recommended to follow up with all of her other physicians as directed. 5. The patient recommended to return to acute care hospital immediately if signs or symptoms return, worsen, or any other new symptoms occur. DISCHARGE MEDICATIONS: Please see full discharge medication list for details with the following changes. 1. Acyclovir 200 mg one tablet p.o. t.i.d. 2. Prednisone 60 mg daily for four days, followed by 40 for one day, followed by 20 for one day, followed by 10 for two days, and then stop. 3. Lidocaine 5% transdermal patch one patch topically daily. 4. Ibuprofen 800 mg q.8 hours p.r.n. severe pain, to be taken with food or snack. 5. Aspirin 81 mg one tablet p.o. daily. 6. Vitamin D 2 tablets p.o. daily. 7. Hydrochlorothiazide 25 mg one tablet p.o. daily. 8. Mesalamine 1000 mg one tablet p.o. 4 times per day as needed for inflammatory bowel disease. 9. Vitamin C 1000 mg p.o. daily. 10. Artificial Tears each eye four times per day as needed for dry eyes. Greater than 37 minutes spent coordinating care and discharge process for this patient. Job ID: [id number]
--- NOTE | 2020-01-25 15:34 | CT ---
EXAM: CT angiogram head and neck with IV contrast and 3-D reconstructions PROVIDED CLINICAL HISTORY: Left lower facial droop and right-sided neck pain for 3 days COMPARISON: 01/01/2018 FINDINGS: There is a normal arrangement of the great vessels at the aortic arch which are patent. Portion of th e left subclavian artery is not well visualized due to dense contrast in adjacent veins, but the subclavian arteries are otherwise patent bilaterally. The innominate artery as well as bilateral comm on carotid arteries are patent. The bilateral internal and extracranial external carotid arteries are patent. The right vertebral artery is again dominant and patent. The left vertebral artery is small in calibe r and terminates in PICA. The basilar artery and bilateral posterior cerebral arteries are patent The bilateral middle cerebral and anterior cerebral arteries are patent. No focal stenosis or branch occlusion is appreciated. Vascular calcifications are seen in the carotid siphons. Volume loss is seen in the anterior aspect of the right upper lobe with mild dependent atelectasis bi laterally. There is been no interval change when compared to the prior exam. IMPRESSION: 1. Patent bilateral internal carotid arteries. 2. Patent right vertebral artery. The left vertebral artery is small in caliber and terminates in PIC A but is patent. 3. No focal stenosis or branch occlusion is seen involving the [place] or vertebrobasilar sy stem. 4. No definite intracranial aneurysm is seen within the limitations of the technique of this exam. Transcribed Date/Time: 01/25/2020 3:34 PM
== END 2020-01-24 16:58 | disposition home or self-care (01) | DRG 74 ==
LOC: ERS 14:21 → 2SE 15:37
PROVIDERS: ADMIT Internal Medicine; ATTEND Internal Medicine
DX: G51.0 Bell's palsy (principal); K50.90 Crohn's disease, unspecified, without complications; I10 Essential (primary) hypertension; G35 Multiple sclerosis; I08.1 Rheumatic disorders of both mitral and tricuspid valves; Z90.49 Acquired absence of other specified parts of digestive tract; Z90.710 Acquired absence of both cervix and uterus; Z79.899 Other long term (current) drug therapy; Z79.82 Long term (current) use of aspirin
CPT/HCPCS: 36415; 36416; 70450; 70496; 70498; 70553; 72157; 80053; 80061; 81003; 82550; 83036; 84484; 85025; 85610; 85730; 93005; 93306; 94760; J1650; J2270; J2997; J7512; Q9967

== ENCOUNTER 2020-08-16 11:46 | Outpatient (CLI) | payer MEDICARE, OTHER ==
--- NOTE | 2020-08-16 12:38 | MMO ---
Bilateral MAMMO Bilat Screen [facility]. CLINICAL HISTORY: Patient is 55 years old and is seen for screening. The patient has no family history of breast cancer. The patient has no personal history of cancer. VIEWS: The views performed were: bilateral craniocaudal with tomosynthesis and bilateral mediolateral oblique with tomosynthesis. FILMS COMPARED: The present examination has been compared to prior imaging studies performed at [facility] on 12/15/2014 and 02/09/2018, and at [facility] on 12/27/2005. This study has been interpreted with the assistance of computer-aided detection. MAMMOGRAM FINDINGS: There are scattered fibroglandular densities. There are no suspicious masses, suspicious calcifications, or new areas of architectural distortion. IMPRESSION: THERE IS NO MAMMOGRAPHIC EVIDENCE OF MALIGNANCY. A ROUTINE FOLLOW-UP MAMMOGRAM IN 1 YEAR IS RECOMMENDED. THE RESULTS OF THIS EXAM WERE SENT TO THE PATIENT. ACR BI-RADS Category 1 - Negative MAMMOGRAPHY NOTE: 1. A negative mammogram report should not delay a biopsy if a dominant of clinically suspicious mass is present. 2. Approximately 10% to 15% of breast cancers are not detected by mammography. 3. Adenosis and dense breasts may obscure an underlying neoplasm. Reported by: YASSINE BATES MD Electonically Signed: [id number]
== END 2020-08-16 11:47 | disposition home or self-care (01) ==
LOC: BICMAMMO 11:46
PROVIDERS: ATTEND Nurse Practitioner Family
DX: Z12.31 Encounter for screening mammogram for malignant neoplasm of breast (principal)
CPT/HCPCS: 77063; 77067

== ENCOUNTER 2022-09-24 09:05 | Emergency (ER) | payer OTHER | END 2022-09-24 13:22 | disposition home or self-care (01) | LOC: ERS 09:05 | DX: R51.9 Headache, unspecified (principal); M54.6 Pain in thoracic spine; M54.2 Cervicalgia; M62.838 Other muscle spasm; F17.210 Nicotine dependence, cigarettes, uncomplicated; I10 Essential (primary) hypertension; E78.00 Pure hypercholesterolemia, unspecified; Z79.899 Other long term (current) drug therapy | CPT/HCPCS: 96372; 99283 ==